=== PATIENT | male | born 1945 | race Caucasian/White ===

== ENCOUNTER 2016-09-11 05:26 | Day surgery (SDC) | payer MEDICARE, BC ==
--- NOTE | ~2016-09-11 | EGD ---
EGD REPORT [facility] [address] [id number] NAME: CHAKA ROSAS : [birth year] STATUS : REG [facility]#: [id number] AGE: 71 ADM/REG DATE : 09/11/16 MR#: [id number] REPORT SERV DATE: 09/11/16 DICTATED BY: RUTAHNN SELLERS DATE: 09/11/16 REPORT STATUS : Draft TRANSCRIBED BY: [facility] DATE: 09/11/16 Endoscopy Center Patient Name: Chaka Rosas Date of : 1945 Attending MD: RUTHANN SELLERS, Procedure Date No Time: 09/11/2016 Procedure: Upper GI endoscopy Indications: Dysphagia Referring MD: PATRICIA CALLES MD Medicines: Monitored Anesthesia Care Complications: No immediate complications. Estimated blood loss: None. Procedure: Pre-Anesthesia Assessment: - ASA Grade Assessment: III - A patient with severe systemic disease. After obtaining informed consent, the endoscope was passed under direct vision. Throughout the procedure, the patient's blood pressure, pulse, and oxygen saturations were monitored continuously. The GIF H190 [id number] was introduced through the mouth, and advanced to the second part of duodenum. The upper GI endoscopy was accomplished without difficulty. The patient tolerated the procedure well. Findings: The esophagus was normal. A guidewire was placed and the scope was withdrawn. Dilation was performed with a Savary dilator with no resistance at 54 Fr. Food (residue) was found in the gastric body. The exam of the stomach was otherwise normal. The cardia and gastric fundus were normal on retroflexion. The examined duodenum was normal. Impression: - Normal esophagus. Dilated. - Food (residue) in the stomach. - Normal examined duodenum. Recommendation: - Patient has a contact number available for emergencies. The signs and symptoms of potential delayed complications were discussed with the patient. Return to normal activities tomorrow. Written discharge instructions were provided to the patient. - Return to previous diet. - Continue present medications. - Repeat the upper endoscopy PRN for retreatment. EGD REPORT [facility] [address] [place] [address]. [place]. [address] NAME: CHAKA ROSAS : [birth year] STATUS : REG [facility] PAT#: [id number] AGE: 71 ADM/REG DATE : 09/11/16 MR#: [id number] REPORT SERV DATE: 09/11/16 DICTATED BY: RUTHANN SELLERS DATE: 09/11/16 REPORT STATUS : Draft TRANSCRIBED BY: [employer] DATE: 09/11/16 Procedure Code(s): --- Professional --- 37603, Esophagogastroduodenoscopy, flexible, transoral; with insertion of guide wire followed by passage of dilator(s) through esophagus over guide wire Diagnosis Code(s): --- Professional --- R13.10, Dysphagia, unspecified CPT copyright 2013 [employer]. All rights reserved. The codes documented in this report are preliminary and upon privacy attorney review may be revised to meet current compliance requirements. RUTHANN SELLERS, 09/11/2016 7:24 AM Number of Addenda: 0 Note Initiated On: 09/11/2016 7:13 AM [address] [facility] [place] [address]
--- NOTE | ~2016-09-11 | EGD ---
EGD REPORT [facility] [address] [address] NAME: CHAKA ROSAS : [birth year] STATUS : [facility]#: [id number] AGE: 71 ADM/REG DATE : 09/11/16 MR#: [id number] REPORT SERV DATE: 09/17/16 DICTATED BY: RUTHANN SELLERS DATE: 09/17/16 REPORT STATUS : Draft [facility]ANS[facility]IB[facility]: [facility] DATE: 09/17/16 Endoscopy Center Patient Name: Chaka Rosas Date of : 1945 Attending MD: RUTHANN SELLERS, Procedure Date No Time: 09/11/2016 Procedure: Upper GI endoscopy Indications: Dysphagia Referring MD: PATRICIA CALLES MD Medicines: Monitored Anesthesia Care Complications: No immediate complications. Estimated blood loss: None. Procedure: Pre-Anesthesia Assessment: - ASA Grade Assessment: III - A patient with severe systemic disease. After obtaining informed consent, the endoscope was passed under direct vision. Throughout the procedure, the patient's blood pressure, pulse, and oxygen saturations were monitored continuously. The GIF H190 [id number] was introduced through the mouth, and advanced to the second part of duodenum. The upper GI endoscopy was accomplished without difficulty. The patient tolerated the procedure well. Findings: The esophagus was normal. A guidewire was placed and the scope was withdrawn. Dilation was performed with a Savary dilator with no resistance at 54 Fr. Food (residue) was found in the gastric body. The exam of the stomach was otherwise normal. The cardia and gastric fundus were normal on retroflexion. The examined duodenum was normal. Impression: - Normal esophagus. Dilated. - Food (residue) in the stomach. - Normal examined duodenum. Recommendation: - Patient has a contact number available for emergencies. The signs and symptoms of potential delayed complications were discussed with the patient. Return to normal activities tomorrow. Written discharge instructions were provided to the patient. - Return to previous diet. - Continue present medications. - Repeat the upper endoscopy PRN for retreatment. EGD REPORT [facility] [address] [facility] [place]. [address] NAME: CHAKA ROSAS : [birth year] STATUS : [facility] PAT#: [id number] AGE: 71 ADM/REG DATE : 09/11/16 MR#: [id number] REPORT SERV DATE: 09/17/16 DICTATED BY: RUTHANN SELLERS DATE: 09/17/16 REPORT STATUS : Draft TRANSCRIBED BY: [employer] SERVICES DATE: 09/17/16 Procedure Code(s): --- Professional --- 96051, Esophagogastroduodenoscopy, flexible, transoral; with insertion of guide wire followed by passage of dilator(s) through esophagus over guide wire Diagnosis Code(s): --- Professional --- R13.10, Dysphagia, unspecified CPT copyright 2013 [employer]. All rights reserved. The codes documented in this report are preliminary and upon java developer analyst review may be revised to meet current compliance requirements. RUTHANN SELLERS, 09/11/2016 7:24 AM Number of Addenda: 0 Note Initiated On: 09/11/2016 7:13 AM Scope Withdrawal Time 0 hours 0 minutes 0 seconds [address] [facility] [place] [address]
[~2016-09-11 05:26] MED LIST: ALEVE220 MG PO; ASAB PO; B COMPLETE PO; B-12 INJECTION IM; B121000P SC; BUSPAR5 PO; CARB-LEVO PO; CLARIT10 PO; COREG3 PO; CYMBALTA20 PO; FLEX PO; FLOMAX4 PO; GARLIC PO; GINGER ROOT PO; KLONO1 PO; LINZESS 145 M145 MCG PO; LIPITOR20 PO; LORTAB 5 PO; MEDROLPAK4 PO; MULTIPLE VIT PO; NAP500 PO; NEUPRO 4MG4 MG/24 HR TOP; NEUPRO 6MG6 MG/24 HR TOP; NEUPRO1 EACH TOP; NORCO1 TA1 PO; OMNICEF300 PO; OMNIPRED1 % OPH; PCET PO; PRILO PO; PRIMATINE INH; REQUIP2 PO; REQUIP5 PO; SIN-CR PO; STALEVO150 PO; ULTRAM50 PO; V2 PO; VITAMIN D31000 UNIT PO; VITC500 PO; VOLT75 PO; ZOL100 PO; ZOL50 PO
== END 2016-09-11 23:59 | disposition home or self-care (01) ==
LOC: DMU 05:26
PROVIDERS: Internal Medicine Gastroenterology
PROC: 0D757ZZ Dilation of Esophagus, Via Natural or Artificial Opening (ICD-10-PCS; principal; 2016-09-11 07:00)
DX: R13.10 Dysphagia, unspecified (principal); G20 Parkinson's disease; Z95.1 Presence of aortocoronary bypass graft; G47.33 Obstructive sleep apnea (adult) (pediatric); M19.90 Unspecified osteoarthritis, unspecified site; E78.00 Pure hypercholesterolemia, unspecified; I10 Essential (primary) hypertension; K21.9 Gastro-esophageal reflux disease without esophagitis; F40.240 Claustrophobia; I25.10 Atherosclerotic heart disease of native coronary artery without angina pectoris; N40.0 Benign prostatic hyperplasia without lower urinary tract symptoms; Z98.890 Other specified postprocedural states; Z85.828 Personal history of other malignant neoplasm of skin; Z98.41 Cataract extraction status, right eye; Z96.1 Presence of intraocular lens; Z90.49 Acquired absence of other specified parts of digestive tract; Z87.442 Personal history of urinary calculi; F41.9 Anxiety disorder, unspecified; K64.9 Unspecified hemorrhoids; K22.70 Barrett's esophagus without dysplasia; J45.909 Unspecified asthma, uncomplicated; Z90.89 Acquired absence of other organs; H35.30 Unspecified macular degeneration; Z79.899 Other long term (current) drug therapy; Z79.891 Long term (current) use of opiate analgesic; Z79.82 Long term (current) use of aspirin